=== PATIENT | female | born 1995 | race Caucasian/White ===

== ENCOUNTER 2025-04-15 14:15 | Emergency (ER) | payer OTHER, SELFPAY ==
[2025-04-15 14:24] VITALS: BP 123/81; PULSE 81; RESP 20; TEMP 36.6; O2SAT 100
--- NOTE | 2025-04-15 14:31 | ED.WOUNDLAC ---
HPI - Wound/Laceration General Chief Complaint: Wound/Laceration Stated Complaint: Laceration to Finger Time Seen by Provider: 04/15/25 14:33 History of Present Illness HPI narrative: Related Data Home Medications ?Medication ?Instructions ?Recorded ?Confirmed ?Last Taken ?Type colchicine 0.6 mg tablet mg 04/15/25 Unknown History sertraline 50 mg tablet mg 04/15/25 Unknown History Allergies Allergy/AdvReac Type Severity Reaction Status Date / Time Penicillins Allergy Intermediate Unknown Verified 04/15/25 14:28 Course Vital Signs Vital signs: Vital Signs Temperature 97.8 F 04/15/25 14:24 Pulse Rate 81 04/15/25 14:24 Respiratory Rate 20 04/15/25 14:24 Blood Pressure 123/81 04/15/25 14:24 Pulse Oximetry 100 04/15/25 14:24 Oxygen Delivery Room Air 04/15/25 14:24 Temperature 97.8 F 04/15/25 14:24 Pulse Rate 81 04/15/25 14:24 Respiratory Rate 20 04/15/25 14:24 Blood Pressure 123/81 04/15/25 14:24 Pulse Oximetry 100 04/15/25 14:24 Oxygen Delivery Room Air 04/15/25 14:24 Discharge Plan Discharge Patient Language: Palauan Prescriptions: No Action colchicine 0.6 mg tablet sertraline 50 mg tablet Follow-up/Referrals: PHYSICIAN NOT ON STAFF,NONSTAFF [Primary Care Provider]
[2025-04-15] MEDS: LIDOCAINE 1% LOCAL INJ 2 ML AMPUL 4 ML INFILTRATE (14:43)
--- NOTE | 2025-04-15 15:20 | ED.WOUNDLAC ---
HPI - Wound/Laceration General Chief Complaint: Wound/Laceration Stated Complaint: Laceration to Finger Time Seen by Provider: 04/15/25 14:33 Source: patient and RN notes reviewed Mode of arrival: ambulatory Limitations: no limitations History of Present Illness HPI narrative: 29-year-old female presents to the [facility] complaining of left pinky injury and right ring finger injury. Patient was wash and a coffee cup in the sink when the coffee mug broken the pieces causing avulsion to her left pinky and a laceration to her right ring finger. Patient denies any other injuries. Patient denies any numbness or tingling. This is her tetanus is up-to-date. Patient said it occurred approximately 2 hours ago. Related Data Home Medications ?Medication ?Instructions ?Recorded ?Confirmed ?Last Taken ?Type colchicine 0.6 mg tablet mg 04/15/25 Unknown History sertraline 50 mg tablet mg 04/15/25 Unknown History Allergies Allergy/AdvReac Type Severity Reaction Status Date / Time Penicillins Allergy Intermediate Unknown Verified 04/15/25 14:28 Review of Systems Review of Systems: CONSTITUTIONAL: Denies fever, chills, or sweats. EYES: Denies visual changes, redness, or discharge. ENT: Denies rhinorrhea, congestion, sore throat, or otalgia. CARDIOVASCULAR: Denies chest pain, palpitations, or edema. RESPIRATORY: Denies cough or dyspnea. GASTROINTESTINAL: Denies abdominal pain, nausea, vomiting, or diarrhea. GENITOURINARY: Denies dysuria or hematuria. SKIN: Denies rash or itching. Positive for wounds to hands. MUSCULOSKELETAL: Denies back pain, joint pain, or myalgia. NEUROLOGIC: Denies headache, numbness, or weakness. PSYCHIATRIC: Denies anxiety or depression. All other systems reviewed are negative, except as documented in HPI. PMFSH Comments At the time of my signature, I reviewed and agree with the nursing past medical, surgical, social, and family history. There is no relevant family history pertinent to the patient complaint. Exam Narrative: GENERAL: This is a well-nourished, well-developed adult, in no apparent distress. They are non ill-appearing, nontoxic appearing. HEAD: normocephalic, atraumatic. EYES: Sclera clear/white. Conjunctiva normal. Vision is grossly intact. Extraocular movements intact EARS: External ears normal, Hearing grossly intact. NOSE: External nose normal THROAT: Mucous membranes moist, NECK: Neck supple, CARDIOVASCULAR: Regular rate and rhythm without murmurs, gallops, or rubs. RESPIRATORY: Respiratory rate normal, respiratory effort nonlabored, no respiratory distress SKIN: warm, Dry, intact with no suspicious lesions or rash, good texture and turgor. NEURO: awake, alert, and oriented to person, place and time. There were no obvious focal neurologic abnormalities. EXTREMITIES: Left pinky: There is a skin avulsion/flap present to the distal palmar surface of the lateral pinky. It is measuring approximately 2 cm long. It is U shaped. No surrounding erythema, swelling, drainage, or fluctuance, no induration. Nail bed and plate intact. No foreign body identified. Sensation intact. Capillary refill less than 2 seconds. Patient able to flex and extend against resistance at the PIP, DIP, MCP joint. Neurovascular status intact distal injury. Radial ulnar, median nerve distribution intact. Right ring finger. Small laceration measuring approximately 0.5 cm to the distal distal ring finger. Approximates well. There is a small laceration measuring less than 0.25 cm proximal to laceration of the distal ring finger. It approximates well. Nail bed and plate are intact. No surrounding erythema, swelling, pain, drainage. No area of fluctuance or induration. Patient able to flex and extend gets resistant the PIP, DIP come any MCP joint. Capillary refill less than 2 seconds. Sensation intact. Neurovascular status intact distal injury. Radial, ulnar, median nerve distribution intact. Course Course Emergency Course: Portions of this record may have been created with voice recognition software Level of Care: Express Care Visit Vital Signs Vital signs: Vital Signs Temperature 97.8 F 04/15/25 14:24 Pulse Rate 81 04/15/25 14:24 Respiratory Rate 20 04/15/25 14:24 Blood Pressure 123/81 04/15/25 14:24 Pulse Oximetry 100 04/15/25 14:24 Oxygen Delivery Room Air 04/15/25 14:24 Temperature 97.8 F 04/15/25 14:24 Pulse Rate 81 04/15/25 14:24 Respiratory Rate 20 04/15/25 14:24 Blood Pressure 123/81 04/15/25 14:24 Pulse Oximetry 100 04/15/25 14:24 Oxygen Delivery Room Air 04/15/25 14:24 Reviewed Procedures Laceration Laceration 1: Date: 04/15/25 Time: 15:00 Site: hand Side (If applicable): left (Left pinky) Size (cm): 2 Description: flap Depth: simple, single layer (Subcutaneous tissue present no muscle fascia present.) Local Anesthetic: lidocaine 1% Amount of anesthesia used (mL): 2 Pre-repair: wound explored and irrigated extensively ====== Skin Level ====== Skin layer closed with: nylon Size (cm): 5-0 Number of sutures: 5 Technique: simple, interrupted ====== Subcutaneous Layer ====== ====== Muscle Layer ====== ====== Tendon Layer ====== Dressing: antibiotic ointment, not adherent dressing. Laceration 2: Date: 04/15/25 Time: 15:15 Site: hand Side (If applicable): right (Right ring finger) Size (cm): 0.5 Description: linear Depth: simple, single layer ====== Skin Level ====== Skin layer closed with: steri strips (1) ====== Subcutaneous Layer ====== ====== Muscle Layer ====== ====== Tendon Layer ====== Dressing: Bacitracin, non adherent dressing MDM - Wound/Laceration MDM Narrative Medical decision making narrative: Successful laceration repair skin flap to left pinky finger with 5 sutures placed. Steri-Strips applied to a superficial laceration to the right ring finger. Wounds are clean by nursing staff. Presents apply by nursing staff. Neurovascular status intact distal to injuries. Discussed physical exam findings. Advised supportive measures and signs/symptoms to go to the ER. Pt is appropriate for outpt treatment and f/u. Differential Diagnosis Differential diagnosis: Likely laceration, abrasion and avulsion of skin Critical Care Time Critical Care Time Critical Care Time: No Discharge Plan Discharge Clinical Impression: Avulsion of finger Qualifiers: Encounter type: initial encounter Qualified Code(s): S61.209A - Unspecified open wound of unspecified finger without damage to nail, initial encounter Finger laceration Qualifiers: Encounter type: initial encounter Finger: ring finger Damage to nail status: without damage Foreign body presence: without foreign body Laterality: right Qualified Code(s): S61.214A - Laceration without foreign body of right ring finger without damage to nail, initial encounter Patient Disposition: Home Condition: Stable Instructions: Care For Your Stitches (DC), Laceration (ED) Additional Instructions: Your sutures need to be removed in 10-14 days. ?Wear the dressing that has been applied for the first 24 hours to allow a scab to start forming. ?After this, you may remove and wash as normal with soap and water. ?Do NOT wash with peroxide or alcohol. You may apply antibiotic ointment or Vaseline to the area daily. Do not soak or scrub the wound. Avoid dirty water to the wound has healed completely. Change the dressing daily or when soiled, use a non adherent dressing such as a Band-Aid. Leave the Steri-Strips on for 3 days and remove it. Tylenol ibuprofen as needed for pain. Follow instructions on the bottle. ?Follow up with your PCP 3-5 days. Look for any signs of infection such as redness, swelling, increased pain, or drainage, or fevers. ?Follow-up with hand specialist for any problems within dysfunction of your pinky. Return to ER for any signs of infection, or any serious concerns. Patient Language: Citizen Of [place] Prescriptions: No Action colchicine 0.6 mg tablet sertraline 50 mg tablet Follow-up/Referrals: Edgar Baird MD [Physician, Plastic Surgery] PHYSICIAN NOT ON STAFF,NONSTAFF [Primary Care Provider] Stand Alone Forms: Work/School Release IP Time of Disposition: 15:19
--- OUTSIDE RECORDS SUMMARY | 2025-04-15 16:31 | XMS_ITS | Encounter Summary ---
Author Organization [facility] Address [address] [place] [address] Care Team Providers Care Sheet Tester Name Role Phone Kimberly Malone MD Primary Care Provider [phone] Encounter Details Date Type Department Care Team (Late st Contact Info) Description 01/04/1999 Outpatient Historical [facility] Pediatric[facility] [place] [address] [place] [address] Omar Joyce MD NO ADDRESS ON FILE Social History Tobacco Use Types Packs/Day Years Used Date Smoking Tobacco: Never Assessed Comments Unknown Sex and Gender Information Value Date Recorded Sex Assigned at Not on file Legal 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
--- OUTSIDE RECORDS SUMMARY | 2025-04-15 16:31 | XMS_ITS | Encounter Summary ---
Author Organization [facility] Address [address] [place] [address] Care Team Providers Care Api Developer Name Role Phone Kimberly Malone MD Primary Care Provider [phone]- [phone] Encounter Details Date Type Department Care Team (Late st Contact Info) Description 04/11/2000 Outpatient Historical [facility] Pediatrics [place] [address] [place] [address] Omar Joyce MD NO ADDRESS ON FILE Social History Tobacco Use Types Packs/Day Years Used Date Smoking Tobacco: Never Assessed Comments Unknown Sex and Gender Information Value Date Recorded Sex Assigned at Not on file 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
--- OUTSIDE RECORDS SUMMARY | 2025-04-15 16:31 | XMS_ITS | Clinical Summary ---
Author Organization [facility] Address [address] [place] [address] Phone Care Team Providers Care Making Department Preparer Name Role Phone Polina Arana MD Primary Care Provider [phone] Medications metroNIDAZOLE (Flagyl) 500 MG Tablet Take 1 Tablet by mouth 3 times daily. 30 Tablet 12/10/2023 Active dicyclomine (BENTYL) 20 MG Tablet Take 1 Tablet by mouth every 6 hours. 30 Tablet 12/10/2023 Active ondansetron (ZOFRAN) 4 MG Tablet Take 1 Tablet by mouth every 8 hours as needed for Nausea - 1st line. 10 Tablet 12/10/2023 Active Social History Tobacco Use Types Packs/Day Years Used Date Smoking Tobacco: Never Assessed Comments Unknown Sex and Gender Information Value Date Recorded Sex Assigned at Female 12/10/2023 5:17 PM CDT Legal Sex Female 4:48 PM CDT Gender Identity Not on file Sexual Orientation Not on file Last Filed Vital Signs Vital Sign Reading Time Taken Comments Blood Pressure 117/59 12/10/2023 7:34 PM CDT Pulse 89 12/10/2023 7:34 PM CDT Temperature 36.6 C (97.8 F) 12/10/2023 7:34 PM CDT Respiratory Rate 17 12/10/2023 7:34 PM CDT Oxygen Saturation 98% 12/10/2023 7:34 PM CDT Inhaled Oxygen Concentration - - Weight 77.1 kg (170 lb) 12/10/2023 4:55 PM CDT Height 170.2 cm (5' 7) 12/10/2023 4:55 PM CDT Body Mass Index 26.63 12/10/2023 4:55 PM CDT Plan of Treatment Health Maintenance Due Date Last Done Comments Hepatitis C Virus (HCV) Screening 1995 Pap Smear 07/11/2022 07/11/2019 Influenza Immunization (#1) 2025 10/0 11/2021, 04/07/2021, 02/28/2020, Additional history exists SARS-COV-2 Immunization (2024- season) 2025 03/24/2022, 04/07/2021, 07/12/2020, Additional history exists Respiratory Syncytial Virus (RSV) Immunization (Adult) (1 - 1-dose 75+ series) 12/28/2070 Hepatitis B Immunization Completed 997, 02/02/1996, 1995 Human Papillomavirus (HPV) Immunization Completed 01/01/2008, 04/12/2007, 01/04/2007 Meningococcal Immunization (ACWY) Completed 01/24/2014, 01/04/2007 TdaP Immunization Completed 01/24/2014, 01/04/2007 Pneumococcal Immunization Combined Aged Out No longer eligible based on patient's age to complete this topic Rotavirus Immunization Aged Out No lo nger eligible based on patient's age to complete this topic Insurance [facility] Care Teams Making Department Preparer Relationship Specialty Start Date End Date Polina Arana MD [address] [place] [address] [place] [address] PCP - General Family Medicine 12/10/23
--- OUTSIDE RECORDS SUMMARY | 2025-04-15 16:31 | XMS_ITS | Encounter Summary ---
Author Organization [facility] Address [address] [place] [address] Care Team Providers Care Set Decorator Name Role Phone Kimberly Malone MD Primary Care Provider [phone] Encounter Details Date Type Department Care Team (Late st Contact Info) Description 03/27/1998 Outpatient Historical [facility] Pediatric[facility] [place] [address] [place] [address] Henry Salinas MD [address] [place] [address] Social History Tobacco Use Types Packs/Day Years Used Date Smoking Tobacco: Never Assessed Comments Unknown Sex and Gender Information Value Date Recorded Sex Assigned at Not on file Legal Sex Female 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
--- OUTSIDE RECORDS SUMMARY | 2025-04-15 16:31 | XMS_ITS | Encounter Summary ---
Author Organization [facility] Address [address] [place] [address] Care Team Providers Care Fruit And Vegetable Factory Worker Name Role Phone Kimberly Malone MD Primary Care Provider [phone]- [phone] Encounter Details Date Type Department Care Team (Late st Contact Info) Description 03/15/2004 Outpatient Historical [facility] Pediatric[facility] [place] [address] [place] [address] [place] [address] Omar Joyce MD NO ADDRESS ON FILE Social History Tobacco Use Types Packs/Day Years Used Date Smoking Tobacco: Never Assessed Comments Unknown Sex and Gender Information Value Date Recorded Sex Assigned at Not on file Legal 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
--- OUTSIDE RECORDS SUMMARY | 2025-04-15 16:31 | XMS_ITS | Encounter Summary ---
Author Organization [facility] Address [address] [place] [address] Care Team Providers Care Dressing Machine Operator Name Role Phone Kimberly Malone MD Primary Care Provider [phone]- [phone] Encounter Details Date Type Department Care Team (Late st Contact Info) Description 08/24/1999 Outpatient Historical [facility] Pediatrics [place] [address] [place] [address] Omar Joyce MD NO ADDRESS ON FILE Social History Tobacco Use Types Packs/Day Years Used Date Smoking Tobacco: Never Assessed Comments Unknown Sex and Gender Information Value Date Recorded Sex Assigned at Not on file 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
--- OUTSIDE RECORDS SUMMARY | 2025-04-15 16:31 | XMS_ITS | Clinical Summary ---
Author Organization [facility] Address [address] [place] [address] Care Team Providers Care Loom Starter Name Role Phone Polina Arana MD Primary Care Provider [phone] Kelly Myles STAMPING MILL TENDER Unavailable [phone] Allergies Active Allergy Reactions Criticality Noted Date Comments Penicillins Hives High Reaction: Hives, Medications hydroxychloroqu ine (PLAQUENIL) 200 mg tablet Take 1 tablet (200 mg total) by mouth 2 (two) times a day Active sertraline (ZOLOFT) 50 mg tablet Take 1 tablet (50 mg total) by mouth daily Active multivit yurcqugc-hgzy-N A-calcium (THERA-M) 9 mg iron-400 mcg tablet Take 1 tablet by mouth daily Active ferrous sulfate 325 mg (65 mg of elemental iron) tablet Take 1 tablet (325 mg total) by mouth daily with breakfast Active Lactobacillus no.46/B.animali s (PROBIOTIC-10 ORAL) Take 1 capsule by mouth daily Active omega-3 fatty acids-fish oil 300-1,000 mg capsule Take 1 capsule (1 g total) by mouth daily Active Active Problems Problem Noted Date Diagnosed Date Peritonsillar abscess 10/02/2024 Generalized rash 07/01/2014 Pruritus of skin 07/01/2014 Atopic eczema 05/14/2014 Medical History Medical History Date Comments Eczema eczema Personal history of diseases of skin or subcutaneous tissue History of eczema - (Added b y TW Conv) Social History Tobacco Use Types Packs/Day Years Used Date Smoking Tobacco: Never [facility] Utilities Answer Date Recorded In the past 12 months has th e electric, gas, oil, or water company threatened to shut off services in your home? No 10/03/2024 Social Connection and Isolation Panel Answer Date Recorded In a typical week, how many times do you talk on the phone with family, friends, or neighbors? More than three times a week 10/03/2024 How often do you get togethe r with friends or relatives? More than three times a week 10/03/2024 How often do you attend chur ch or roman catholic services? 1 to 4 times per year 10/03/2024 Do you belong to any clubs o r organizations such as sikhism groups, unions, fraternal or athletic groups, or school groups? No 10/03/2024 How often do you attend meet ings of the clubs or organizations you belong to? Never 10/03/2024 Are you , , di vorced, , never , or living with a partner? Never 10/03/2024 AUDIT-C Answer Date Recorded Q1: How often do you have a drink containing alc ohol? 2-4 times a month 10/02/2024 Q2: How many drinks containi ng alcohol do you have on a typical day when you are drinking? 1 or 2 10/02/2024 Q3: How often do you have si x or more drinks on one occasion? Never 10/02/2024 Overall Financial Resource Strain (CARDIA) Answe r Date Recorded How hard is it for you to pa y for the very basics like food, housing, medical care, and heating? Not hard at all 10/03/2024 Hunger Vital Sign Answer Date Recorded Within the past 12 months, y ou worried that your food would run out before you got the money to buy more. Never true 10/04/19 25 Within the past 12 months, t he food you bought just didn't last and you didn't have money to get more. Never true 10/03/2024 PRAPARE - Transportation Answer Date Re corded In the past 12 months, has l ack of transportation kept you from medical appointments or from getting medications? No 09/17 In the past 12 months, has l ack of transportation kept you from meetings, work, or from getting things needed for daily living? No 10/03/2024 Housing Stability Vital Sign Answer Luis Alfredo e Recorded In the last 12 months, was t here a time when you were not able to pay the mortgage or rent on time? No 10/03/2024 In the past 12 months, how m any times have you moved where you were living? 0 10/03/2024 At any time in the past 12 m [facility], were you homeless or living in a correction (including now)? No 10/03/2024 Personal Safety Answer Date Recorded Have you ever been in or are you currently in a harmful physical or emotional relationship or is someone making you feel afraid or unsafe? Denies 10/02/2024 Comments No Sex and Gender Information Value Date Recorded Sex Assigned at Not on file Legal Sex Female 11:11 AM MARINE OPERATIONS COORDINATOR Gender Identity Not on file Sexual Orientation Not on file Obstetrics History Last Filed Vital Signs Vital Sign Reading Time Taken Comments Blood Pressure 114/67 10/03/2024 3:30 PM CDT Pulse 85 10/03/2024 3:30 PM CDT Temperature 37 C (98.6 F) 10/03/2024 3:30 PM CDT Respiratory Rate 16 10/03/2024 3:30 PM CDT Oxygen Saturation 98% 10/03/2024 3:30 PM CDT Inhaled Oxygen Concentration - - Weight 81.6 kg (180 lb) 10/02/2024 8:25 PM CDT Height 170.2 cm (5' 7) 10/02/2024 8:25 PM CDT Body Mass Index 28.19 10/02/2024 8:25 PM CDT Plan of Treatment Health Maintenance Due Date Last Done Comments Cervical Cancer Screening 1995 Depression Screening 1995 Hepatitis C Screening 1995 Regular Well Visit/Exam 18-64 12/28/2013 Pneumococcal vaccine <65 (1 of 2 - PCV) 12/28/2014 Zoster Vaccine (1 of 2) 12/28/2014 Covid-19 Vaccine (4 - 2024-2 6 season) 2025 04/07/2021, 07/12/2020, 06/21/2020 Influenza Vaccine (#1) 2025 , 03/14/2023, 03/24/2022, Additional history exists DTaP/Tdap/Td Vaccine (9 - Td or Tdap) 08/17/2034 08/17/2024, 01/24/2014, 01/04/2007, Additional history exists Hepatitis B Screening Completed 10/01/1996 , 02/02/1996, 1995 Varicella Vaccines Completed 01/04/2007, 04/11/2000 HPV Vaccines Completed 01/01/2008, 03/20, 01/04/2007 Insurance [facility] [employer] SIGNATURE Advance Directives For more information, please contact: [phone] * Full Code (Latest Code Status on File) Date Activated Date Inactivated Comments 10/02/2024 5:30 PM 10/03/2024 8:22 PM Care Teams Loom Starter Relationship Specialty Start Date End Date Polina Arana MD [address] [place] [address] PCP - General Family Medicine 10/02/24 Kelly Myles NP [address] [place] [address] Nurse Practitioner Otolaryngology 10/03/24
--- OUTSIDE RECORDS SUMMARY | 2025-04-15 16:31 | XMS_ITS | Encounter Summary ---
Author Organization [facility] Address [address] [place] [address] Care Team Providers Care Procurement Intern Name Role Phone Kimberly Malone MD Primary Care Provider +1- [phone] Encounter Details Date Type Department Care Team (Late st Contact Info) Description 04/12/2007 Outpatient Historical [facility] [place] [address] [facility] [place] [address] Kimberly Malone MD [address] [address] Social History Tobacco Use Types Packs/Day Years Used Date Smoking Tobacco: Never Assessed Comments Unknown Sex and Gender Information Value Date Recorded Sex Assigned at Not on file Legal Sex Female 4:58 AM MEDICAL I D SALES Gender Identity Not on file Sexual Orientation Not on file documented as of this encounter Plan of Treatment Not on file documented as of this encounter Visit Diagnoses Not on filedocumented in this encounter Care Teams Procurement Intern Relationship Specialty Start Date End Date Kimberly Malone MD PCP - General 01/01/08 03/01/18 documented as of this encounter
--- OUTSIDE RECORDS SUMMARY | 2025-04-15 16:31 | XMS_ITS | Clinical Summary ---
Author Organization [facility] Administrative Offices Address [address] [place] [address] Care Team Providers Care Nursing Aide Name Role Phone Unavailable Primary Care Provider Unavailabl e Allergies Active Allergy Reactions Criticality Noted Date Comments Penicillins 02/01/2007 Medications sertraline (ZOLOFT) 50 mg tablet Take 50 mg by mouth daily. 09/09/2022 Active ondansetron (ZOFRAN ODT) 4 mg Tablet, Rapid Dissolve Take 1 Tablet (4 mg) by mouth every 8 hours as needed for Nausea/Emesis . Dissolve tablet on top of tongue, then swallow with saliva. 10 Tablet 06/13/2023 Active ibuprofen (MOTRIN) 600 mg tablet Take 1 Tablet (600 mg) by mouth every 6 hours as needed for Pain, Mild. 20 Tablet 06/13/2023 Active Active Problems No known active problems Resolved Problems Problem Noted Date Diagnosed Date Resolved Date Cellulitis 02/05/2008 12/25/2009 Shortness of breath 02/01/2007 12/26/19 10 Immunizations Immunization Administration Dates Next Due (ADACEL/BOOSTRIX)(10 YR UP) TDAP VACCINE, 0.5ML, IM 01/04/2007 (GARDASIL)(9-45 YRS) HUMAN P APILLOMAVIRUS VACCINE, TYPES 6, 11, 16, 18, QUADRIVALENT (4VHPV), 3 DOSE, IM 01/01/2008,04/12/2007,01/04/2007 (HAVRIX/VAQTA)(12 MO-18 YRS) HEPATITIS A VACCINE 0.5 ML PED/ADOL 2 DOSE, IM 12/25/2009,06/16/2009 (VARIVAX)(12 MOS UP)VARICELL A VIRUS VACCINE (PF) 0.5 ML, SUB CUT 01/04/2007,04/11/2000 Meningococcal A Conjugate Vaccine IM 01/04/2007 Social History Tobacco Use Types Packs/Day Years Used Date Smoking Tobacco: Never Tobacco Cessation:Counseling Given: Not Answered Alcohol Use Standard Drinks/Week Comments Not Asked 0 (1 standard drink = 0.6 oz pur e alcohol) Comments No Sex and Gender Information Value Date Recorded Sex Assigned at Not on file Legal Sex Female 4:58 AM REGIONAL WILDLIFE AGENT Gender Identity Not on file Sexual Orientation Not on file Last Filed Vital Signs Vital Sign Reading Time Taken Comments Blood Pressure 111/67 06/13/2023 9:47 AM REGIONAL WILDLIFE AGENT Pulse 112 06/13/2023 9:47 AM REGIONAL WILDLIFE AGENT Temperature 37.6 C (99.7 F) 06/13/2023 9:47 AM REGIONAL WILDLIFE AGENT Respiratory Rate 19 06/13/2023 9:47 AM REGIONAL WILDLIFE AGENT Oxygen Saturation 98% 06/13/2023 9:47 AM REGIONAL WILDLIFE AGENT Inhaled Oxygen Concentration - - Weight 77.1 kg (170 lb) 06/13/2023 9:47 AM REGIONAL WILDLIFE AGENT Height 170.2 cm (5' 7) 06/13/2023 9:47 AM REGIONAL WILDLIFE AGENT Body Mass Index 26.63 06/13/2023 9:47 AM REGIONAL WILDLIFE AGENT Plan of Treatment Health Maintenance Due Date Last Done Comments CERVICAL CANCER SCREENING 12/28/2016 HPV/Cotest (-29) 12/28/2016 PAP SMEAR 12/28/2016 DTAP/TDAP/TD VACCINES (6 - T d or Tdap) 01/25/2024 01/24/2014, 01/04/2007, 04/11/2000, Additional history exists INFLUENZA VACCINE (#1) 2025 02/28/2020, 2018 COVID-19 Vaccine (2024-2 6 season) 2025 04/07/2021, 07/12/2020, 06/21/2020 HEPATITIS B VACCINES Completed 10/01/1996, 02/02/1996, 1995 HPV VACCINES Completed 01/01/2008, 03/20, 01/04/2007 Insurance [phone] xmom (Work) [id number] [place] [address] [employer] OPEN ACCESS HMO AETNA CHOICE POS II CIGNA OPEN ACCESS HMO
--- OUTSIDE RECORDS SUMMARY | 2025-04-15 16:31 | XMS_ITS | Encounter Summary ---
Author Organization [facility] Address [address] [place] [address] Care Team Providers Care Operations Project Manager Name Role Phone Kimberly Malone MD Primary Care Provider [phone]- [phone] Encounter Details Date Type Department Care Team (Late st Contact Info) Description 04/11/2000 Outpatient Historical [facility] Pediatrics [place] [address] [place] [address] Omar Joyce MD NO ADDRESS ON FILE Social History Tobacco Use Types Packs/Day Years Used Date Smoking Tobacco: Never Assessed Comments Unknown Sex and Gender Information Value Date Recorded Sex Assigned at Not on file Legal Sex Female 4:58 AM REHAB SERVICES AIDE Gender Identity Not on file Sexual Orientation Not on file documented as of this encounter Plan of Treatment Not on file documented as of this encounter Visit Diagnoses Not on filedocumented in this encounter Care Teams Operations Project Manager Relationship Specialty Start Date End Date Kimberly Malone MD PCP - General 01/01/08 03/01/18 documented as of this encounter
--- OUTSIDE RECORDS SUMMARY | 2025-04-15 16:31 | XMS_ITS | Encounter Summary ---
Author Organization [facility] Address [address] [place] [address] Care Team Providers Care Assessment Consultant Name Role Phone Kimberly Malone MD Primary Care Provider [phone]- [phone] Encounter Details Date Type Department Care Team (Late st Contact Info) Description 2003 Outpatient Historical [facility] Pediatrics [place] [address] [facility] [place] [address] Omar Joyce MD NO ADDRESS ON FILE Social History Tobacco Use Types Packs/Day Years Used Date Smoking Tobacco: Never Assessed Comments Unknown Sex and Gender Information Value Date Recorded Sex Assigned at Not on file Legal Sex Female 4:58 AM YOGHURT MAKER Gender Identity Not on file Sexual Orientation Not on file documented as of this encounter Plan of Treatment Not on file documented as of this encounter Visit Diagnoses Not on filedocumented in this encounter Care Teams Assessment Consultant Relationship Specialty Start Date End Date Kimberly Malone MD PCP - General 01/01/08 03/01/18 documented as of this encounter
--- OUTSIDE RECORDS SUMMARY | 2025-04-15 16:31 | XMS_ITS | Encounter Summary ---
Author Organization [facility] Address [address] [place] [address] Care Team Providers Care Airplane Pilot Supervisor Name Role Phone Kimberly Malone MD Primary Care Provider +1- [phone] Encounter Details Date Type Department Care Team (Late st Contact Info) Description 06/28/2000 Outpatient Historical [facility] Pediatrics [place] [address] [place] [address] Omar Joyce MD NO ADDRESS ON FILE Social History Tobacco Use Types Packs/Day Years Used Date Smoking Tobacco: Never Assessed Comments Unknown Sex and Gender Information Value Date Recorded Sex Assigned at Not on file Legal Sex Female 4:58 AM LINUX SYSTEMS ADMINISTRATOR Gender Identity Not on file Sexual Orientation Not on file documented as of this encounter Plan of Treatment Not on file documented as of this encounter Visit Diagnoses Not on filedocumented in this encounter Care Teams Airplane Pilot Supervisor Relationship Specialty Start Date End Date Kimberly Malone MD PCP - General 01/01/08 03/01/18 documented as of this encounter
--- OUTSIDE RECORDS SUMMARY | 2025-04-15 16:31 | XMS_ITS | Encounter Summary ---
Author Organization [facility] Address [address] [place] [address] Care Team Providers Care Executive Housekeeper Name Role Phone Kimberly Malone MD Primary Care Provider +1- [phone] Encounter Details Date Type Department Care Team (Late st Contact Info) Description 11/17/2001 Outpatient Historical [facility] Pediatrics [place] [address] [facility] [place] [address] Omar Joyce MD NO ADDRESS ON FILE Social History Tobacco Use Types Packs/Day Years Used Date Smoking Tobacco: Never Assessed Comments Unknown Sex and Gender Information Value Date Recorded Sex Assigned at Not on file Legal Sex Female 4:58 AM MUD WORKER Gender Identity Not on file Sexual Orientation Not on file documented as of this encounter Plan of Treatment Not on file documented as of this encounter Visit Diagnoses Not on filedocumented in this encounter Care Teams Executive Housekeeper Relationship Specialty Start Date End Date Kimberly Malone MD PCP - General 01/01/08 03/01/18 documented as of this encounter
--- OUTSIDE RECORDS SUMMARY | 2025-04-15 16:31 | XMS_ITS | Clinical Summary ---
Author Organization [facility] Address [address] [place] [address] Care Team Providers Care Retail Clerk Name Role Phone Polina Arana MD Primary Care Provider [phone] Aura Ramires MD Unavailable [phone] Prashant Raines MD Unavailable Source Comments [facility],non-owned Affiliates and Associated Physician Practices is amultiple site organization consisting of ambulatory clinics and hospital sitesin [place], [place], [place] and [place]. This disclosure is being madepursuant to the Care Everywhere program and may not contain all information available regarding this patient. Last updated 18.[facility] Allergies Active Allergy Reactions Criticality Noted Date Comments Penicillins Urticaria High 10/26/2017 Reaction: Hives, Reported from Patient Health Questionnaire Medications * Be aware that medications may not be up to date on this document. Alwaysverify current medications with the patient. Multiple Vitamins-Minerals (DAILY MULTIVITAMIN PO) Act reggie Probiotic Product (PROBIOTIC PO) Activ e etonogestrel (Nexplanon) 68 MG implant 68 (sixty eight) mg by Subdermal route as directed Active triamcinolone acetonide (Kenalog) 0.1 % ointment Apply to affected area 2 times daily 454 g 1 4 Active colchicine 0.6 MG tablet Take 1 (one) tablet by mouth 2 times daily 5 Active fish oil/omega-3 fatty acids (Promega;Cardi-Om ega 3) 1000 MG capsule Take 1 (one) capsule by mouth once daily Active sertraline (Zoloft) 50 MG tablet Take 1 (one) tablet by mouth once daily 90 tablet 3 5 Active clindamycin (Cleocin) 300 MG capsule Take 1 (one) capsule by mouth 3 times daily 21 capsule Active nystatin (Nystop) 070551 UNIT/GM powder Apply to affected area 3 times daily as needed 60 g 1 5 Active Active Problems Problem Noted Date Diagnosed Date 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 Dior ([facility]) Musculoskeletal pain 11/24/2020 Shoulder strain 11/24/2020 Strain of neck muscle 11/24/2020 Encounters Date Type Department Care Team Description 01/15/2025 9:00 AM CDT Office Visit [facility] - Family Medicine [address] [place] [address] Polina Arana MD Annual physical exam (Primary Dx); Folliculitis; Intertrigo 01/15/2025 Travel from Last 3 Months Immunizations Immunization Administration Dates Next Due DTP 03/11/1996 DTP HIB, HISTORIC VACCINE 03/11/1996 DTaP VACCINE IM (6wk-6yrs) 04/11/2000,,06/06/1996,05/02 HEP A PEDS 2 DOSE 12/25/2009,06/16/2009 HEP B VACCINE 10/01/1996,02/02/1996,1995 HIB VACCINE 06/06/1996,05/02/1996,03/11/1996 Human Papilloma Virus Belinda valent Vaccine 01/01/2008,04/12/2007,01/04/2007 INFLUENZA VACCINE 03/24/2022,,03/13/2019,03/14 INFLUENZA VACCINE, CELL CULT URE, QUADR. (FLUCELVAX QUADRIVALENT; 6MO+) (CCIIV4) 03/14/2023 INFLUENZA VACCINE, QUADR. (F LUZONE; FLULAVAL; FLUARIX; AFLURIA QUADRIVALENT; 6MO+), 0.5 ML (IIV4) 02/28/2020 INFLUENZA VACCINE, TRIV. (FL UZONE; FLULAVAL; FLUARIX; AFLURIA TRIVALENT; 6MO+), 0.5 ML (IIV3) 04/05/2024 MENINGOCOCCAL ACWY (MCV4P) VAC IM 2013,01/24/2014,01/04/2007,01/04 MMR VACCINE 08/05/2016,04/11/2000,01/04/1997 POLIO IPV 04/11/2000,06/06/1996,05/02/1996 POLIO OPV 03/11/1996 TDAP (7yrs+) 08/17/2024,01/04/2007 TDAP, HISTORIC VACCINE 01/24/2014 VARICELLA 01/04/2007,04/11/2000 Family History Medical History Relation Name Comments Hyperlipidemia Father Hypertension Father Psoriasis Father Blood Clots Maternal Grandfather Mental Illness - Other Maternal Grandmother Arthritis - Osteo Mother Diabetes - Type 2 Mother Hyperlipidemia Mother Hypertension Mother Thyroid Disease Mother Alcohol abuse Paternal Grandfather Psoriasis Sister Relation Name Status Comments Father Alive Maternal Grandfather Maternal Grandmother Mother Alive Paternal Grandfather Paternal Grandmother Sister Alive Social History Tobacco Use Types Packs/Day Years Used Date Smoking Tobacco: Never Smokeless Tobacco: Never Tobacco Cessation:Counseling Given: Not Answered Alcohol Use Standard Drinks/Week Comments Yes 0 (1 standard drink = 0.6 oz pur e alcohol) 3-4 drinks on weekend AUDIT-C Answer Date Recorded Q1: How often do you have a drink containing alc ohol? 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 Not on file Not on f ile Not on file Last Filed Vital Signs Vital Sign Reading Time Taken Comments Blood Pressure 120/80 01/15/2025 8:59 AM CDT Pulse 78 01/15/2025 8:59 AM CDT Temperature 36.8 C (98.2 F) 10/08/2024 8:28 AM CDT Respiratory Rate 18 08/16/2024 10:28 PM DRYWALL FINISHING FOREMAN Oxygen Saturation 98% 01/15/2025 8:59 AM CDT Inhaled Oxygen Concentration - - Weight 83.9 kg (185 lb) 01/15/2025 8:59 AM CDT Height 173 cm (5' 8.11) 01/15/2025 8:59 AM CDT Body Mass Index 28.04 01/15/2025 8:59 AM CDT Plan of Treatment Health Maintenance Due Date Last Done Comments PNEUMOCOCCAL VACCINE (1 of 2 - PCV) 12/28/2014 ZOSTER VACCINE (1 of 2) 12/28/2014 COVID-19 VACCINE (5 - season) 2025 03/24/2022, 04/07/2021, 07/12/2020, Additional history exists INFLUENZA VACCINE (#1) 2025 , 03/14/2023, 03/24/2022, Additional history exists PAP SMEAR 12/31/2026 01/01/2024, 12/17, 07/11/2019 DTAP/TDAP/TD VACCINES (9 - Td or Tdap) 08/17/2034 08/17/2024, 01/24/2014, 01/04/2007, Additional history exists HIB VACCINE Aged Out 06/06/1996, 04/19, 03/11/1996, Additional history exists No longer eligible based on patient's age to complete this topic HEPATITIS B VACCINE Completed 10/01/1996, 02/02/1996, 1995 HPV VACCINE Completed 01/01/2008, 03/20, 01/04/2007 MENINGOCOCCAL GROUPS A/C/Y/W VACCINE Completed 01/24/2014, 01/24/2014, 01/04/2007, Additional history exists HIV SCREENING Completed 04/24/2024, 07/11/2019 HEPATITIS C SCREENING Completed 04/30/2024, 024 DEPRESSION SCREENING Completed 06/25/2024, 07/13/2023, 09/16/2022 MENINGOCOCCAL (Group B) VACCINE SHARED DECISION-MAKING Aged Out No longer eligible based on patient's age to complete this topic Procedures Procedure Name Priority Date/Time Associated Diagnosis Comments HEPATITIS SCREEN ACUTE ([facility]) Routine 04/30/2024 10:11 AM DRYWALL FINISHING FOREMAN Polyarthralgia Vitamin D deficiency Oral ulcer Lass[place] Erythema nodosum HIV-1 HIV-2 ANTIBODY + HIV P24 AG PANEL STAT 04/24/2024 2:58 PM DRYWALL FINISHING FOREMAN PAP IG LB CT+NG+TV RFLX HPV ASCU Routine 01/01/2024 12:47 PM CDT Well woman exam with routine gynecological exam Cervical cancer screening from Last 3 Months or Most Recently Relevant to Health Maintenance Results * HEPATITIS SCREEN ACUTE ([facility]) (04/30/2024 10:11 AM DRYWALL FINISHING FOREMAN) Hepatitis A Virus Antibody IgM Negative Negative [facility] INSURANCE BILL Comment: A negative anti-HAV IgM result suggests no recent or current HAV infection. Hepatitis B Virus Surface Antigen Negative Negative [facility] INSURANCE BILL Hepatitis B Core Virus Antibody IgM Negative Negative [facility] INSURANCE BILL Hepatitis C Antibody Non Reactive Non Reactive [facility] INSURANCE BILL Comment: Performed at: [facility] [id number] Privacy Specialist: Sean Greene PhD, Phone: [phone] Interpretation Comment [facility] INSURANCE BILL Comment: Not infected with HCV unless early or acute infection is suspected (which may be delayed in an immunocompromised individual), or other evidence exists to indicate HCV infection. Blood BLOOD SPECIMEN / Unknown 04/30/2024 10:11 AM DRYWALL FINISHING FOREMAN 04/30/2024 Narrative [facility] INSURANCE BILL - 05/01/2024 6:13 AM DRYWALL FINISHING FOREMAN Performed at: [facility] [id number] Privacy Specialist: Sean Greene PhD, Phone: [phone] Aura Ramires MD LAB - CHEMISTRY ORDERABLES Courtney l Result [facility] INSURANCE BILL [address] [place] [address] * HIV-1 HIV-2 ANTIBODY + HIV P24 AG PANEL (04/24/2024 2:58 PM DRYWALL FINISHING FOREMAN) HIV1/2 Ab + P24 Ag Non Reactive Non Reactive 04/24/2024 10:22 PM DRYWALL FINISHING FOREMAN [facility] Blood BLOOD SPECIMEN / Unknown Venipuncture / Unknown 04/24/2024 2:58 PM DRYWALL FINISHING FOREMAN 04/24/2024 3:05 PM DRYWALL FINISHING FOREMAN Narrative [facility] - 04/24/2024 10:22 PM DRYWALL FINISHING FOREMAN No Laboratory evidence of HIV infection. Kat Elliott CARE ADVOCATE-JAVA SECURITY ENGINEER LAB - CHEMISTRY ORDERA BLES Final Result [facility] [address] [place] [address] * (ABNORMAL) PAP IG LB CT+NG+TV RFLX HPV ASCU (01/01/2024 12:47 PM CDT) Diagnosis (A) [facility] INSURANCE BILL Comment: EPITHELIAL CELL ABNORMALITY. ATYPICAL SQUAMOUS CELLS OF UNDETERMINED SIGNIFICANCE (ASC-US). Specimen Adequacy [facility] INSURANCE BILL Comment:Satisfactory for alyssa luation. No endocervical component is identified. Clinician Provided ICD10 [facility] INSURANCE BILL Comment: Z01.419 Z12.4 Z30.46 Z12.39 N76.0 L30.4 Performed by [facility] INSURANCE BILL Comment:Kim Gutierrez, Cytote chnologist (ASCP) Electronically Signed by [facility] INSURANCE BILL Comment:Ayala Rodriguez MD, P athologist Comment . [facility] INSURANCE BILL Pathologist Provided ICD10 [facility] INSURANCE BILL Comment:R87.610 Note [facility] INSURANCE BILL Comment: The Pap smear is a screening test designed to aid in the detection of premalignant and malignant conditions of the uterine cervix. It is not a diagnostic procedure and should not be used as the sole means of detecting cervical cancer. Both false-positive and false-negative reports do occur. . IGLBP CPT Code Automation [facility] INSURANCE BILL Comment: This liquid based ThinPrep(R) pap test was screened with the use of an image guided system. Note [facility] INSURANCE BILL Comment: See below for HPV testing results. . Chlamydia trachomatis [place] Negative Negative [facility] INSURANCE BILL GC [place] Negative Negative [facility] INSURANCE BILL Trichomonas vaginalis by [place] Negative Negative [facility] INSURANCE BILL PART OF UTERINE CERVIX / Unknown 01/01/2024 12:47 PM CDT 01/01/2024 Narrative [facility] INSURANCE BILL - 01/08/2024 9:07 PM CDT No. of containers..01 ThinPrep Vial Resulting Agency Comment Lab Testing performed at: [facility] [employer] [id number] Virgie Emerson CARE ADVOCATE-JAVA SECURITY ENGINEER LAB - PATHOLOGY/CYTOLOGY ORDERABLES Final Result [facility] INSURANCE BILL [address] [place] [address] from Last 3 Months or Most Recently Relevant to Health Maintenance Insurance [employer] Care Teams Retail Clerk Relationship Specialty Start Date End Date Polina Arana MD [address] [place] [address] PCP - General Family Medicine 09/16/22 [place] [address] [id number] Rheumatology 06/25/24 Prashant Raines MD [address] [place] [address] Otolaryngology 10/08/24
--- OUTSIDE RECORDS SUMMARY | 2025-04-15 16:31 | XMS_ITS | Encounter Summary ---
Author Organization [facility] Address [address] [place] [address] Care Team Providers Care Police Lieutenant Precinct Name Role Phone Kimberly Malone MD Primary Care Provider +1- [phone] Encounter Details Date Type Department Care Team (Late st Contact Info) Description 09/18/2002 Outpatient Historical [facility] Pediatrics [place] [address] [facility] [place] [address] Omar Joyce MD NO ADDRESS ON FILE Social History Tobacco Use Types Packs/Day Years Used Date Smoking Tobacco: Never Assessed Comments Unknown Sex and Gender Information Value Date Recorded Sex Assigned at Not on file Legal Sex Female 4:58 AM SCOUT PROFESSIONAL SPORTS Gender Identity Not on file Sexual Orientation Not on file documented as of this encounter Plan of Treatment Not on file documented as of this encounter Visit Diagnoses Not on filedocumented in this encounter Care Teams Police Lieutenant Precinct Relationship Specialty Start Date End Date Kimberly Malone MD PCP - General 01/01/08 03/01/18 documented as of this encounter
--- OUTSIDE RECORDS SUMMARY | 2025-04-15 16:31 | XMS_ITS | Encounter Summary ---
Author Organization [facility] Address [address] [place] [address] Care Team Providers Care Analysis Or Research Safety Inspector Name Role Phone Kimberly Malone MD Primary Care Provider +1- [phone] Encounter Details Date Type Department Care Team (Late st Contact Info) Description 03/16/2005 Outpatient Historical [facility] Pediatrics [place] [address] [facility] [place] [address] Omar Joyce MD NO ADDRESS ON FILE Social History Tobacco Use Types Packs/Day Years Used Date Smoking Tobacco: Never Assessed Comments Unknown Sex and Gender Information Value Date Recorded Sex Assigned at Not on file Legal Sex Female 4:58 AM GAG WRITER Gender Identity Not on file Sexual Orientation Not on file documented as of this encounter Plan of Treatment Not on file documented as of this encounter Visit Diagnoses Not on filedocumented in this encounter Care Teams Analysis Or Research Safety Inspector Relationship Specialty Start Date End Date Kimberly Malone MD PCP - General 01/01/08 03/01/18 documented as of this encounter
--- OUTSIDE RECORDS SUMMARY | 2025-04-15 16:31 | XMS_ITS | Encounter Summary ---
Author Organization [facility] Address [address] [place] [address] Care Team Providers Care American Sign Language Teacher Name Role Phone Kimberly Malone MD Primary Care Provider +1- [phone] Encounter Details Date Type Department Care Team (Late st Contact Info) Description 06/20/2000 Outpatient Historical [facility] Pediatrics [place] [address] [facility] [place] [address] Omar Joyce MD NO ADDRESS ON FILE Social History Tobacco Use Types Packs/Day Years Used Date Smoking Tobacco: Never Assessed Comments Unknown Sex and Gender Information Value Date Recorded Sex Assigned at Not on file Legal Sex Female 4:58 AM BOBBIN CLEANER HAND Gender Identity Not on file Sexual Orientation Not on file documented as of this encounter Plan of Treatment Not on file documented as of this encounter Visit Diagnoses Not on filedocumented in this encounter Care Teams American Sign Language Teacher Relationship Specialty Start Date End Date Kimberly Malone MD PCP - General 01/01/08 03/01/18 documented as of this encounter
--- OUTSIDE RECORDS SUMMARY | 2025-04-15 16:31 | XMS_ITS | Encounter Summary ---
Author Organization [facility] Address [address] [place] [address] Care Team Providers Care Egg Processor Name Role Phone Kimberly Malone MD Primary Care Provider +1- [phone] Encounter Details Date Type Department Care Team (Late st Contact Info) Description 05/03/2003 Outpatient Historical [facility] [place] [address] [facility] [place] [address] Omar Joyce MD NO ADDRESS ON FILE Social History Tobacco Use Types Packs/Day Years Used Date Smoking Tobacco: Never Assessed Comments Unknown Sex and Gender Information Value Date Recorded Sex Assigned at Not on file Legal Sex Female 4:58 AM OUTDOOR ADVENTURE INSTRUCTOR Gender Identity Not on file Sexual Orientation Not on file documented as of this encounter Plan of Treatment Not on file documented as of this encounter Visit Diagnoses Not on filedocumented in this encounter Care Teams Egg Processor Relationship Specialty Start Date End Date Kimberly Malone MD PCP - General 01/01/08 03/01/18 documented as of this encounter
--- OUTSIDE RECORDS SUMMARY | 2025-04-15 16:31 | XMS_ITS | Encounter Summary ---
Author Organization [facility] Address [address] [place] [address] Care Team Providers Care Burlap Man Name Role Phone Kimberly Malone MD Primary Care Provider +1- [phone] Encounter Details Date Type Department Care Team (Late st Contact Info) Description 01/04/2007 Outpatient Historical [facility] Pediatric[facility] [place] [address] [facility] [place] [address] Kimberly Malone MD [address] [address] Social History Tobacco Use Types Packs/Day Years Used Date Smoking Tobacco: Never Assessed Comments Unknown Sex and Gender Information Value Date Recorded Sex Assigned at Not on file Legal Sex Female 4:58 AM INCIDENT RESPONSE ENGINEER Gender Identity Not on file Sexual Orientation Not on file documented as of this encounter Plan of Treatment Not on file documented as of this encounter Visit Diagnoses Not on filedocumented in this encounter Care Teams Burlap Man Relationship Specialty Start Date End Date Kimberly Malone MD PCP - General 01/01/08 03/01/18 documented as of this encounter
--- OUTSIDE RECORDS SUMMARY | 2025-04-15 16:31 | XMS_ITS | Encounter Summary ---
Author Organization [facility] Address [address] [place] [address] Care Team Providers Care Gasfitter Name Role Phone Kimberly Malone MD Primary Care Provider +1- [phone] Encounter Details Date Type Department Care Team (Late st Contact Info) Description 02/01/2007 Outpatient Historical [facility] [place] [address] [facility] [address] Aneta Hughes MD [address] [address] Social History Tobacco Use Types Packs/Day Years Used Date Smoking Tobacco: Never Assessed Comments Unknown Sex and Gender Information Value Date Recorded Sex Assigned at Not on file Legal Sex Female 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 Gender Identity Not on file Sexual Orientation Not on file documented as of this encounter Last Filed Vital Signs Vital Sign Reading Time Taken Comments Blood Pressure - - Pulse - - Temperature 36.7 C (98 F) 02/01/2007 2:40 PM CDT Respiratory Rate - - Oxygen Saturation - - Inhaled Oxygen Concentration - - Weight - - Height - - Body Mass Index - - documented in this encounter Plan of Treatment Not on file documented as of this encounter Visit Diagnoses Not on filedocumented in this encounter Care Teams Gasfitter Relationship Specialty Start Date End Date Kimberly Malone MD PCP - General 01/01/08 03/01/18 documented as of this encounter
--- OUTSIDE RECORDS SUMMARY | 2025-04-15 16:31 | XMS_ITS | Encounter Summary ---
Author Organization [facility] Address [address] [place] [address] Care Team Providers Care Roll Press Operator Name Role Phone Kimberly Malone MD Primary Care Provider +1- [phone] Encounter Details Date Type Department Care Team (Late st Contact Info) Description 01/12/1998 Outpatient Historical [facility] Pediatric[facility] [place] [address] [facility] [place] [address] Omar Joyce MD NO ADDRESS ON FILE Social History Tobacco Use Types Packs/Day Years Used Date Smoking Tobacco: Never Assessed Comments Unknown Sex and Gender Information Value Date Recorded Sex Assigned at Not on file 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
--- OUTSIDE RECORDS SUMMARY | 2025-04-15 16:31 | XMS_ITS | Encounter Summary ---
Author Organization [facility] Address [address] [place] [address] Care Team Providers Care Legal Paraprofessional Name Role Phone Kimberly Malone MD Primary Care Provider +1- [phone] Encounter Details Date Type Department Care Team (Late st Contact Info) Description 08/27/2001 Outpatient Historical 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
--- OUTSIDE RECORDS SUMMARY | 2025-04-15 16:31 | XMS_ITS | Encounter Summary ---
Author Organization [facility] Address [address] [place] [address] Care Team Providers Care Public Health Veterinarian Name Role Phone Kimberly Malone MD Primary Care Provider +1- [phone] Encounter Details Date Type Department Care Team (Late st Contact Info) Description 07/13/2001 Outpatient Historical [facility] Pediatrics [place] [address] [place] [address] [place] [address] [address] [facility] [address] [place] [address] Social History Tobacco Use Types Packs/Day Years Used Date Smoking Tobacco: Never Assessed Comments Unknown Sex and Gender Information Value Date Recorded Sex Assigned at Not on file Legal Sex Female 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
--- OUTSIDE RECORDS SUMMARY | 2025-04-15 16:31 | XMS_ITS | Encounter Summary ---
Author Organization [facility] Address [address] [place] [address] Care Team Providers Care Tong Hooker Name Role Phone Kimberly Malone MD Primary Care Provider +1- [phone] Encounter Details Date Type Department Care Team (Late st Contact Info) Description 03/16/2005 Outpatient Historical [facility] Pediatric[facility] [place] [address] [facility] [place] [address] Omar Joyce MD NO ADDRESS ON FILE Social History Tobacco Use Types Packs/Day Years Used Date Smoking Tobacco: Never Assessed Comments Unknown Sex and Gender Information Value Date Recorded Sex Assigned at Not on file Legal Sex Female 4:58 AM TALLOW PUMPER Gender Identity Not on file Sexual Orientation Not on file documented as of this encounter Plan of Treatment Not on file documented as of this encounter Visit Diagnoses Not on filedocumented in this encounter Care Teams Tong Hooker Relationship Specialty Start Date End Date Kimberly Malone MD PCP - General 01/01/08 03/01/18 documented as of this encounter
--- OUTSIDE RECORDS SUMMARY | 2025-04-15 16:31 | XMS_ITS | Encounter Summary ---
Author Organization [facility] Address [address] [place] [address] Care Team Providers Care Pointing Machine Operator Name Role Phone Kimberly Malone MD Primary Care Provider +1- [phone] Encounter Details Date Type Department Care Team (Late st Contact Info) Description 03/22/2002 Outpatient Historical [facility] Pediatric[facility] [place] [address] [facility] [place] [address] Omar Joyce MD NO ADDRESS ON FILE Social History Tobacco Use Types Packs/Day Years Used Date Smoking Tobacco: Never Assessed Comments Unknown Sex and Gender Information Value Date Recorded Sex Assigned at Not on file Legal Sex Female 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
--- OUTSIDE RECORDS SUMMARY | 2025-04-15 16:31 | XMS_ITS | Encounter Summary ---
Author Organization [facility] Address [address] [place] [address] Care Team Providers Care Tableau Lead Name Role Phone Kimberly Malone MD Primary Care Provider +1- [phone] Encounter Details Date Type Department Care Team (Late st Contact Info) Description 01/04/2007 Outpatient Historical [facility] Pediatrics [place] [address] [place] [address] Kimberly Malone MD [address] [address] Social History Tobacco Use Types Packs/Day Years Used Date Smoking Tobacco: Never Assessed Comments Unknown Sex and Gender Information Value Date Recorded Sex Assigned at Not on file Legal Sex Female 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
--- OUTSIDE RECORDS SUMMARY | 2025-04-15 16:31 | XMS_ITS | Encounter Summary ---
Author Organization [facility] Address [address] [place] [address] Care Team Providers Care Survey Field Technician Name Role Phone Kimberly Malone MD Primary Care Provider +1- [phone] Encounter Details Date Type Department Care Team (Late st Contact Info) Description 04/30/2004 Outpatient Historical [facility] Pediatric[facility] [place] [address] [facility] [place] [address] Omar Joyce MD NO ADDRESS ON FILE Social History Tobacco Use Types Packs/Day Years Used Date Smoking Tobacco: Never Assessed Comments Unknown Sex and Gender Information Value Date Recorded Sex Assigned at Not on file Legal Sex Female 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
--- OUTSIDE RECORDS SUMMARY | 2025-04-15 16:31 | XMS_ITS | Encounter Summary ---
Author Organization [facility] Address 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
--- OUTSIDE RECORDS SUMMARY | 2025-04-15 16:31 | XMS_ITS | Encounter Summary ---
Author Organization [facility] Address [address] [place] [address] Care Team Providers Care Roll Threader Operator Name Role Phone Kimberly Malone MD Primary Care Provider +1- [phone] Encounter Details Date Type Department Care Team (Late st Contact Info) Description 05/24/2004 Outpatient Historical [facility] Pediatric[facility] [place] [address] [facility] [address] Omar Joyce MD NO ADDRESS ON FILE Social History Tobacco Use Types Packs/Day Years Used Date Smoking Tobacco: Never Assessed Comments Unknown Sex and Gender Information Value Date Recorded Sex Assigned at Not on file Legal Sex Female 4:58 AM RESULTS ENGINEER Gender Identity Not on file Sexual Orientation Not on file documented as of this encounter Plan of Treatment Not on file documented as of this encounter Visit Diagnoses Not on filedocumented in this encounter Care Teams Roll Threader Operator Relationship Specialty Start Date End Date Kimberly Malone MD PCP - General 01/01/08 03/01/18 documented as of this encounter
== END 2025-04-15 15:25 | disposition home or self-care (01) ==
DX: S61.217A Laceration without foreign body of left little finger without damage to nail, initial encounter (principal); S61.215A Laceration without foreign body of left ring finger without damage to nail, initial encounter; W26.8XXA Contact with other sharp object(s), not elsewhere classified, initial encounter; Y93.G1 Activity, food preparation and clean up
CPT/HCPCS: 12001; 99202; G0463; J2003